=== PATIENT | female | born 1985 | race Two or more races ===

== ENCOUNTER 2020-03-17 13:27 | Emergency (ER) | payer MEDICAID ==
[~2020-03-17] VITALS: Ht 154.9 cm; Wt 79.5 kg
[~2020-03-17 13:27] MED LIST: BACTDSB PO
[2020-03-17 14:19] LABS: BASOPHILS % (AUTO) 0.5 % (0.0-2.0); EOSINOPHILS % (AUTO) 1.4 % (1.0-6.0); HEMATOCRIT 37.3 % (36-46); HEMOGLOBIN 12.3 g/dL (12.0-16.0); LYMPHOCYTES # (AUTO) 2.7 K/uL (1.0-4.8); LYMPHOCYTES % (AUTO) 25.9 % (22.0-44.0); MEAN CORPUSCULAR HEMOGLOBIN 30.5 pg (26.0-34.0); MEAN CORPUSCULAR HGB CONC 33.1 G/dL (31.0-37.0); MEAN CORPUSCULAR VOLUME 92 fL (80-100); MONOCYTES # (AUTO) 0.6 K/uL (0.1-1.0); MONOCYTES % (AUTO) 5.5 % (2.0-9.0); NEUTROPHILS % (AUTO) 66.7 % (40.0-70.0); PLATELET COUNT (AUTO) 296 K/uL (150-450); RED BLOOD CELL COUNT(AUTO) 4.03 MIL/uL (4.00-5.20); RED CELL DISTRIBUTION WIDTH 13.8 % (11.5-14.5)
[2020-03-17 14:33] LABS: ANION GAP 17 mmol/L (8-16); CALCIUM, TOTAL 8.8 mg/dL (8.8-10.5); CARBON DIOXIDE 26 mmol/L (22-29); CHLORIDE 106 mmol/L (98-107); CREATININE 0.88 mg/dL (0.60-1.30); GLOMERULAR FILTR. RATE CALC > 60 mL/min (>60); GLUCOSE,RANDOM 119 mg/dL (70-110); POTASSIUM 3.8 mmol/L (3.5-5.1); SODIUM SERUM 149 mmol/L (136-145); UREA NITROGEN, BLOOD 17 mg/dL (7-18)
[2020-03-17] MEDS ORDERED: ACETAMINOPHEN 500 MG TABLET PO ONE (15:15)
[2020-03-17 15:37] LABS: HCG,QUANTITATIVE 1 mIU/mL (0-6)
[2020-03-17 15:48] LABS: APPEARANCE,URINE CLOUDY (CLEAR); BILIRUBIN,URINE NEGATIVE (NEGATIVE); GLUCOSE, URINE (UA) NEGATIVE (NEGATIVE); KETONES,URINE NEGATIVE (NEGATIVE); LEUKOCYTE ESTERASE ,URINE LARGE (NEGATIVE); NITRATE,URINE POSITIVE (NEGATIVE); OCCULT BLOOD,URINE LARGE (NEGATIVE); PH,URINE 6.5 (5.0-8.0); PROTEIN,URINE TRACE (NEGATIVE); UROBILINOGEN,URINE 0.2 mg/dL (<=1.0)
[2020-03-17 16:26] LABS: RBC,URINE 26-50 /HPF (0-2)
[2020-03-17 16:27] LABS: BACTERIA,URINE Few /HPF (None Seen); SQUAMOUS EPITHELIAL CELL,UR Few /LPF (None Seen)
[2020-03-17 16:43] VITALS: BP 124/69
== END 2020-03-17 16:43 | disposition home or self-care (01) ==
LOC: EMS 13:45
DX: N39.0 Urinary tract infection, site not specified (principal); Z79.899 Other long term (current) drug therapy
CPT/HCPCS: 87086

== ENCOUNTER 2021-12-18 17:26 | Emergency (ER) | payer MEDICAID ==
[~2021-12-18] VITALS: Ht 157.5 cm; Wt 106.8 kg
[2021-12-18] MEDS ORDERED: ATOR40TA28 PO (17:36)
[2021-12-18 21:53] LABS: BASOPHILS % (AUTO) 0.7 % (0.0-2.0); EOSINOPHILS % (AUTO) 0.1 % (1.0-6.0); HEMATOCRIT 38.2 % (36-46); HEMOGLOBIN 12.6 g/dL (12.0-16.0); LYMPHOCYTES % (AUTO) 12.8 % (22.0-44.0); MEAN CORPUSCULAR HEMOGLOBIN 29.5 pg (26.0-34.0); MEAN CORPUSCULAR HGB CONC 33.1 G/dL (31.0-37.0); MEAN CORPUSCULAR VOLUME 89 fL (80-100); MONOCYTES # (AUTO) 0.4 K/uL (0.1-1.0); MONOCYTES % (AUTO) 2.6 % (2.0-9.0); NEUTROPHILS # (AUTO) 13.3 K/uL (1.8-7.7); NEUTROPHILS % (AUTO) 83.8 % (40.0-70.0); PLATELET COUNT (AUTO) 253 K/uL (150-450); RED BLOOD CELL COUNT(AUTO) 4.28 MIL/uL (4.00-5.20); RED CELL DISTRIBUTION WIDTH 13.4 % (11.5-14.5)
[2021-12-18 22:12] LABS: COVID AG,FIA SOURCE NASOPHARYNGEAL
[2021-12-18 22:12] LABS: ANION GAP 9 mmol/L (8-16); CARBON DIOXIDE 23 mmol/L (22-29); CHLORIDE 102 mmol/L (98-107); CREATININE 0.84 mg/dL (0.60-1.30); GLUCOSE,RANDOM 133 mg/dL (70-110); POTASSIUM 3.6 mmol/L (3.5-5.1); SODIUM SERUM 134 mmol/L (136-145); UREA NITROGEN, BLOOD 12 mg/dL (7-18)
[2021-12-18] MEDS: SODIUM CHLORIDE 0.9% 1,000 ML IV ONE (22:13)
[2021-12-18] MEDS: ONDANSETRON HCL 4 MG/2 ML VIAL IVP ONE (22:13)
[2021-12-18 22:21] LABS: GLOMERULAR FILTR. RATE CALC > 60 mL/min (>60)
[2021-12-18 22:22] LABS: HCG,QUANTITATIVE < 1 mIU/mL (0-6)
[2021-12-18] MEDS ORDERED: KETOROLAC TROMETHAMINE 30 MG/ML VIAL IVP ONE (23:00)
[2021-12-19] MEDS: KETOROLAC TROMETHAMINE 15 MG/ML VIAL IVP ONE (00:09)
[2021-12-19 07:00] VITALS: BP 119/69
== END 2021-12-19 07:03 | disposition home or self-care (01) ==
LOC: EMS 17:33
DX: R51.9 Headache, unspecified (principal); Z90.49 Acquired absence of other specified parts of digestive tract; Z98.890 Other specified postprocedural states; Z20.822 Contact with and (suspected) exposure to COVID-19
CPT/HCPCS: 99285; 96374; 70450; 96361; 87426; 80048; 84702; 85025; 96375; J2405; J7030; J1885

== ENCOUNTER 2023-08-06 08:20 | Emergency (ER) | payer MEDICAID ==
[~2023-08-06] VITALS: Ht 157.5 cm; Wt 94.5 kg
[~2023-08-06 08:20] MED LIST changes: +ATOR40TA28 PO; -BACTDSB PO
[2023-08-06 08:27] VITALS: TEMP 98.7
[2023-08-06 08:50] LABS: APPEARANCE,URINE CLEAR (CLEAR); BILIRUBIN,URINE NEGATIVE (NEGATIVE); COLOR,URINE LIGHT YELLOW (YELLOW); GLUCOSE, URINE (UA) NEGATIVE (NEGATIVE); KETONES,URINE NEGATIVE (NEGATIVE); LEUKOCYTE ESTERASE ,URINE SMALL (NEGATIVE); NITRATE,URINE NEGATIVE (NEGATIVE); OCCULT BLOOD,URINE TRACE (NEGATIVE); PROTEIN,URINE NEGATIVE (NEGATIVE); SPECIFIC GRAVITIY, URINE 1.018 (1.003-1.030); UROBILINOGEN,URINE <=1.0 mg/dL (<=1.0)
[2023-08-06 08:58] LABS: BACTERIA,URINE None Seen /HPF (None Seen); RBC,URINE 0-2 /HPF (0-2); SQUAMOUS EPITHELIAL CELL,UR Rare /LPF (None Seen)
[2023-08-06] MEDS: KETOROLAC TROMETHAMINE 60 MG/2 ML VIAL IM ONE (09:32)
[2023-08-06] MEDS: METHOCARBAMOL 500 MG TABLET PO ONE (09:32)
[2023-08-06] MEDS ORDERED: IBUP-1492 PO (09:53)
[2023-08-06] MEDS ORDERED: METH-659 PO (09:53)
[2023-08-06 10:11] VITALS: BP 138/76; PULSE 64; RESP 18
== END 2023-08-06 10:30 | disposition home or self-care (01) ==
LOC: EMS 08:20
DX: M54.50 Low back pain, unspecified (principal); Z90.49 Acquired absence of other specified parts of digestive tract; Z98.890 Other specified postprocedural states
CPT/HCPCS: 99283; 81001; 96372; J1885